=== PATIENT | female | born 1955 | race Two or more races ===

== ENCOUNTER 2024-08-13 13:18 | Inpatient (IN) | payer OTHER, MEDICAID ==
[~2024-08-13] VITALS: Ht 167.6 cm; Wt 45.0 kg
--- NOTE | 2024-08-13 14:29 | ECG ---
[facility] Test Date: 2024-08-13 Test Time: 13:29:38 Pat Name: FAVIO CAIN Department: er Room: Gender: F Manager Of Selection And Assessment: lisa : 1955 Requested By: TARA MORA Order Number: [id number] Reading MD: Measurements Intervals [place] Rate: 88 P: 83 RI: 141 QRS: 81 QRSD: 94 T: 26 QT: 381 QTc: 461 Interpretive Statements Sinus rhythm Borderline right axis deviation Probable LVH with secondary repol abnrm Please click the below link to view image of tracing.
--- NOTE | 2024-08-13 14:35 | ED.PDOC ---
SOB-HPI HPI Comments 69-year-old female with PMHx Lung Cancer, DM, HTN brought in by EMS presents with a chief complaint of SOB x 2 weeks. Patient reports that she stays in a board and care facility, and "wanted to get out" due to feeling like she is not being cared for because "they don't even know my medicine that I take". Patient was on Hospice, but reports that she does not want to continue on Hospice. Patient reports that she wants to "go somewhere where they actually know what medications I am on and where they take care of you." No other symptoms or modifying factors present at this time. 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 Hx Family History Family History: Reviewed,noncontributory to illness Social History Smoker: Quit Greater Than 1 Year Alcohol: Denies ETOH Use Drugs: Denies Drug Use Lives In: [facility] Constitutional: denies: chills, diaphoresis, fatigue, fever, malaise, sweats, weakness, others EENTM: denies: blurred vision, double vision, ear bleeding, ear discharge, ear drainage, ear pain, ear ringing, eye pain, eye redness, hearing loss, mouth pain, mouth swelling, nasal discharge, nose bleeding, nose congestion, nose pain, photophobia, tearing, throat pain, throat swelling, voice changes, others Respiratory: reports: shortness of breath; denies: cough, hemoptysis, orthopnea, SOB at rest, SOB with excertion, stridor, wheezing, others Cardiovascular: denies: chest pain, dizzy spells, diaphoresis, Dyspnea on exertion, edema, irregular heart beat, left arm pain, lightheadedness, palpitations, PND, syncope, others Gastrointestinal: denies: abdomen distended, abdominal pain, blood streaked bowels, constipated, diarrhea, dysphagia, difficulty swallowing, hematemesis, melena, nausea, poor appetite, poor fluid intake, rectal bleeding, rectal pain, vomiting, others Genitourinary: denies: abnormal vagina bleeding, burning, dyspareunia, dysuria, flank pain, frequency, hematuria, incontinence, pain, , vagina disc harge, urgency, others Neurological: denies: dizziness, fainting, headache, left sided numbness, left sided weakness, numbness, paresthesia, pre-existing deficit, right sided numbness, right sided weakness, seizure, speech problems, tingling, tremors, weakness, others Musculoskeletal: denies: back pain, gout, joint pain, joint swelling, muscle pain, muscle stiffness, neck pain, others Integumetry: denies: bruises, change in color, change in hair/nails, dryness, laceration, lesions, lumps, rash, wounds, others Allergic/Immunocompromised: denies: Difficulty Healing, Frequent Infections, Hives, Itching, others Hematologic/Lymphatic: denies: anemia, blood clots, easy bleeding, easy bruising, swollen glands, others Endocrine: denies: excessive hunger, excessive sweating, excessive thirst, excessive urination, flushing, intolerance to cold, intolerance to heat, unexplained weight gain, unexplained weight loss, others Psychiatric: denies: anxiety, bipolar disorder, depression, hopeless, panic disorder, schizophrenia, sleepless, suicidal, others All Other Systems: Reviewed and Negative Physical Exam General Appearance: Mild Distress, Normal HEENT: Normal ENT Inspection, Pharynx Normal, TMs Normal Neck: Full Range of Motion, Non-Tender, Normal, Normal Inspection Respiratory: Chest Non-Tender, Lungs Clear, No Accessory Muscle Use, No Respiratory Distress, Normal Breath Sounds Cardiovascular: No Edema, No JVD, No Murmur, No Gallop, Normal Peripheral Pulses, Regular Rate/Rhythm Breast Exam: Deferred Gastrointestinal: No Organomegaly, Non Tender, No Pulsatile Mass, Normal Bowel Sounds, Soft Genitalia: Deferred Pelvic: Deferred Rectal: Deferred Extremities: No calf tenderness, Normal capillary refill, Normal inspection, Normal range of motion, Non-tender, No pedal edema Musculoskeletal : Apperance: Normal Neurologic: Alert, tripe finisher II-XII nml as Tested, No Motor Deficits, Normal Affect, Normal Mood, No Sensory Deficits Cerebellar Function: Normal Reflexes: Normal Skin: Dry, Normal Color, Warm Lymphatic: No Adenopathy EKG EKG : Pulse Rate (adult): 90 [place]: Normal Cardiac Rhythm: NSR Block: None Hypertrophy: LVH ST: Normal Was a procedure done? Was a procedure done?: No Differential Dx Differential Diagnosis: Asthma, Bronchitis, CHF, COPD, Hypertension, Pneumonia, Pneumothorax, Pulmonary Embolism, Respiratory Distress X-Ray, Labs, Meds, VS Vital Signs Date Time Temp Pulse Resp B/P (MAP) Pulse Ox O2 Delivery O2 Flow Rate FiO2 08/13/24 16:51 98.0 96 16 132/82 (99) 96 98.0 08/13/24 14:40 14 92 Room Air* 0 21 08/13/24 14:35 90 08/13/24 13:29 88 08/13/24 13:20 Room Air* 0 21 08/13/24 13:20 Room Air* 0 21 08/13/24 13:20 98.1 90 22 135/79 (97) 94 98.1 08/13/24 13:20 98.1 90 22 135/79 (97) 94 Lab Test 08/13/24 15:12 08/13/24 14:16 Range/Units Troponin I High Sensitivity 3 L 3 L </=34 ng/L White Blood Count 5.7 4.4-10.8 10^3/uL Red Blood Count 3.79 L 4.0-5.20 10^6/uL Hemoglobin 12.5 12.2-16.2 g/dL Hematocrit 38.2 36.0-46.0 % Mean Corpuscular Volume 100.9 H 80.0-100.0 fL Mean Corpuscular Hemoglobin 33.1 H 28.0-32.0 pg Mean Corpuscular Hemoglobin Concent 32.8 32.0-36.0 g/dL Red Cell Distribution Width 18.4 H 11.8-14.3 % Platelet Count 247 140-450 10^3/uL Mean Platelet Volume 8.9 6.9-10.8 fL Neutrophils (%) (Auto) 75.9 37.0-80.0 % Lymphocytes (%) (Auto) 14.4 10.0-50.0 % Monocytes (%) (Auto) 8.0 0.0-12.0 % Eosinophils (%) (Auto) 0.5 0.0-7.0 % Basophils (%) (Auto) 1.2 0.0-2.0 % Neutrophils # (Auto) 4.3 1.6-8.6 10 ^3/uL Lymphocytes # (Auto) 0.8 0.4-5.4 10 ^3/uL Monocytes # (Auto) 0.5 0-1.3 10 ^3/uL Eosinophils # (Auto) 0 0-0.8 10 ^3/uL Basophils # (Auto) 0.1 0-0.2 10 ^3/uL Nucleated Red Blood Cells 0.1 % Sodium Level 133 L 136-145 mmol/L Potassium Level 4.0 3.5-5.1 mmol/L Chloride Level 100 98-107 mmol/L Carbon Dioxide Level 25 20-31 mmol/L Anion Gap 8 5-15 Blood Urea Nitrogen 11 9-23 mg/dL Creatinine 0.68 0.550-1.02 mg/dL Glomerular Filtration Rate Calc 95 >90 mL/min BUN/Creatinine Ratio 16.2 10.0-20.0 Serum Glucose 90 74-106 mg/dL Calcium Level 10.1 8.7-10.4 mg/dL Total Bilirubin 0.2 0.2-1.0 mg/dL Aspartate Amino Transferase (AST) 22 13-40 U/L Alanine Aminotransferase (ALT) 15 7-40 U/L Alkaline Phosphatase 77 46-116 U/L Total Protein 7.3 5.7-8.2 g/dL Albumin 4.8 3.2-4.8 g/dL Current Medications Medications (Trade) Dose Ordered Sig/Jackie Route Start Time Stop Time Status Last Admin Albuterol (Ventolin Medneb) 2.5 mg STAT ONCE HHN 08/13/24 14:00 08/13/24 14:02 DC 08/13/24 14:40 Ipratropium [place] (Atrovent Medneb) 0.5 mg ONCE ONCE NEB 08/13/24 14:00 08/13/24 14:02 DC 08/13/24 14:40 69-year-old female presents here with shortness of breath that has been progressively getting worse the last 2 weeks. She has a known history of lung carcinoma. She is currently at a boarding [facility] the became hospice. She states since she went on hospice care she is not getting appropriate treatment. She is requesting transferred to another living facility. At this time considered possible COPD exacerbation as well as pulmonary embolism given her history of carcinoma. I have given her breathing treatments in the emergency room. Clinically she initially felt better however is requiring additional breathing treatments. Blood work has been done with a normal CBC and CMP. At this time I have given patient additional breathing treatments she has continues to feel short of breath. Additionally patient refuses to go back to the facility she came from and will require placement. Hospitalist team has been contacted. Time of 1ST Reevaluation: 14:00 Reevaluation 1ST: Unchanged Patient Education/Counseling: Diagnosis, Treatment, Prognosis Family Education/Counseling: Diagnosis, Treatment, Prognosis Departure 1 Departure Time of Disposition: 15:30 Impression: Primary Impression: COPD exacerbation Disposition: ADMITTED INPATIENT Admit to: Tele Condition: Stable Critical Care Note Critical Care Time?: No Stability Stability form required: No Heart Score Heart Score: Heart Score Response (Comments) Value History Slightly Suspicious 0 EKG Normal 0 Age >65 2 Risk Factors 1 or 2 risk factors 1 Troponin Normal limit 0 Total 3 I personally scribed for TARA MORA MD ([email or web address]) on 08/13/24 at 14:35. Electronically submitted by Matthew Alaniz ([email or web address]). TARA MORA MD Aug 13, 2024 14:35
[2024-08-13 14:40] LABS: Basophils # (auto) 0.1 10 ^3/uL (0-0.2); Basophils % (auto) 1.2 % (0.0-2.0); Eosinophils # (auto) 0 10 ^3/uL (0-0.8); Eosinophils % (auto) 0.5 % (0.0-7.0); Hematocrit 38.2 % (36.0-46.0); Hemoglobin 12.5 g/dL (12.2-16.2); Lymphocytes # (auto) 0.8 10 ^3/uL (0.4-5.4); Lymphocytes % (auto) 14.4 % (10.0-50.0); Mean Corpuscular Hemoglobin 33.1 pg (28.0-32.0); Mean Corpuscular Hgb Conc. 32.8 g/dL (32.0-36.0); Mean Corpuscular Volume 100.9 fL (80.0-100.0); Monocytes # (auto) 0.5 10 ^3/uL (0-1.3); Neutrophils # (auto) 4.3 10 ^3/uL (1.6-8.6); Neutrophils % (auto) 75.9 % (37.0-80.0); Nucleated Red Blood Cells % 0.1 %; Platelet Count (auto) 247 10^3/uL (140-450); Red Blood Cells 3.79 10^6/uL (4.0-5.20); Red Cell Distribution Width 18.4 % (11.8-14.3); White Blood Cell 5.7 10^3/uL (4.4-10.8)
[2024-08-13] MEDS: ALBUTEROL SULF 2.5 MG/0.5ML(0.5%) NEB SOLN HHN ONE (14:40)
[2024-08-13] MEDS: IPRATROPIUM BROM 0.5 MG/2.5ML INH SOL NEB ONE (14:40)
[2024-08-13 14:55] LABS: Alanine Aminotransferase 15 U/L (7-40); Alkaline Phosphatase 77 U/L (46-116); Anion Gap 8 (5-15); Aspartate Aminotransferase 22 U/L (13-40); BUN/Creatinine Ratio 16.2 (10.0-20.0); Blood Urea Nitrogen 11 mg/dL (9-23); Calcium 10.1 mg/dL (8.7-10.4); Carbon Dioxide 25 mmol/L (20-31); Chloride 100 mmol/L (98-107); Glucose 90 mg/dL (74-106); Total Protein 7.3 g/dL (5.7-8.2)
[2024-08-13 15:09] LABS: Albumin 4.8 g/dL (3.2-4.8); Bilirubin, Total 0.2 mg/dL (0.2-1.0); Sodium 133 mmol/L (136-145)
[2024-08-13] MEDS: IOHEXOL 350 MG/ML 100ML IJ ONE (16:17)
--- NOTE | 2024-08-13 16:48 | DVH ---
EXAM: XR Chest, 2 Views CLINICAL INDICATION: ro pna TECHNIQUE: Frontal and lateral views of the chest. COMPARISON: None FINDINGS: LUNGS AND PLEURAL SPACES: Hyperlucent lungs. Flattening of the diaphragm. No consolidation. No pne umothorax. HEART: Unremarkable. No cardiomegaly. MEDIASTINUM: Unremarkable. Normal mediastinal contour. BONES/JOINTS: Unremarkable. No acute fracture. OTHER FINDINGS: . . IMPRESSION: Suggestion of COPD. No focal consolidation.
--- NOTE | 2024-08-13 17:02 | DVH ---
Procedure: CT CT ANGIO CHEST CONTRAST Reason for study/Clinical History: ro pe Comparison Study: None available at time of dictation. Exam Date: 08/13/2024 04:16 PM Radiation Dose Information: CT Dose: CTDI volume is 8.88 mGy. Dose-length product is 166.86 mGy*cm Contrast: Type of contrast: Omnipaque 350 Contrast inject: 76 mL Contrast wasted:0 TECHNIQUE: After the uneventful administration of intravenous contrast intravenously, CT imaging was performed through the chest. Coronal and sagittal reformations were performed by the technologist. Sagittal and coronal MIP reconstructions of the chest CT were obtained and submitted for interpretati on. FINDINGS: Lower Neck: Visualized portions of the thyroid gland are unremarkable. Aorta and Vasculature: Normal caliber of thoracic aorta. Lymph Nodes: No enlarged intrathoracic lymph nodes. Mediastinum: Heart size is normal. There is no pericardial effusion. The esophagus is unremarkable. Lungs: Multiple small spiculated nodules left lung field noncalcified. 8-9 mm nodule left upper lung field (series 3 image 32) ; 8-9 mm ( series 3 image 45 ); 5-6 mm nodule lingula ( series 3, image 69) A 7-8 mm spiculated noncalcified nodule in the right upper lung field (series 3 image 26) Musculoskeletal: No acute osseous abnormality. Upper abdomen: Limited portions of the upper abdomen are unremarkable. IMPRESSION: 1. No pulmonary embolus no pulmonary hypertension 2. 3 pulmonary nodules left lung field. 1 pulmonary nodule right lung field. Correlate with patient's risk factors and recommend follow-up study in 6-[address] scans at this medical facility are performed using dose modulation techniques as appropriate to a performed exam including the following: Automated exposure control was utilized; adjustment of t he MA and/or KV according to patient size; and use of iterative reconstruction technique.
[2024-08-13] MEDS: DexAMETHasone SOD PHOS 10MG/1ML VIAL INJ IV ONE (18:17)
[2024-08-13] MEDS: ALBUTEROL SULF 2.5 MG/0.5ML(0.5%) NEB SOLN NEB ONE (18:20)
[2024-08-13] MEDS ORDERED: ONDANSETRON HCL 4 MG/2 ML VIAL IV PRN (22:45)
[2024-08-13] MEDS ORDERED: NITROGLYCERIN 0.4 MG SL TAB SL PRN (22:45)
[2024-08-13] MEDS ORDERED: DOCUSATE SOD 100 MG CAP PO PRN (22:45)
[2024-08-13] MEDS ORDERED: DEXTROSE (50%) 50ML SYRG IV PRN (22:45)
[2024-08-13] MEDS ORDERED: ACETAMINOPHEN 325 MG TAB PO PRN (22:45)
--- NOTE | 2024-08-13 22:54 | DVHHP2 ---
History of Present Illness Reason for Visit: COPD with acute exacerbation History of Present Illness The patient is a 69-year-old female with past medical history of cancer, COPD, DM, hypertension, and thyroid disease who presented to [facility] ED with complaint of shortness of breaths for approximately 2 weeks duration. Patient was on hospice care, reports symptoms progressively get worse with shortness a breath on exertion, SOB at rest, increased work of breathing, getting worse that prompted this visit. Patient was seen and evaluated in the ED, laboratory data shows WBC 5.7, platelets 247, sodium 133, potassium 4.0, BUN 11, creatinine 0.68, GFR 95, glucose 90, troponin 3, blood pressure 152/70, heart rate 85, temperature 98.7 F, O2 saturation 92% on oxygen. Patient was given breathing treatment, please see medication orders section in the computer. On my assessment, patient denied chest pain, no headache, no dizziness, no abdominal pain, no diarrhea, no nausea, no vomiting, no fever, no chills. Patient was admitted for further evaluation and medical management. Past Medical History Cancer, DM, HTN, thyroid, COPD Past Surgical History Denies all surgeries Family History Reviewed, noncontributory to the management of this case. Past Social History The patient lives in correction, quit smoking greater than 1 year, denies alcohol or illicit drugs abuse. Review of Systems Constitutional: Yes: Weakness; No: Fever, Chills, Sweats, Malaise, Other Eyes: No: Pain, Vision change, Conjunctivae inflammation, Eyelid inflammation, Other, Redness ENT: No: Ear pain, Ear discharge, Nose pain, Nose discharge, Nose congestion, Mouth pain, Mouth swelling, Throat pain, Throat swelling, Other Respiratory: Shortness of breath, SOB with excertion, Other (SOB at rest); No: Cough, Dry, Wheezing, Hemoptysis, Pleuritic Pain, Sputum, Wheezing Cardiovascular: No: Chest Pain, Palpitations, Orthopnea, Paroxysmal Noc. Dyspnea, Edema, Lt Headedness, Other Gastrointestinal: No: Nausea, Vomiting, Abdominal Pain, Diarrhea, Constipation, Melena, Hematochezia, Other Genitourinary: No Dysuria, No Frequency, No Incontinence, No Hematuria, No Retention, No Other Musculoskeletal: No: other, neck pain, shoulder pain, arm pain, back pain, hand pain, leg pain, foot pain Skin: No: Rash, Lesions, Jaundice, Bruising, Other Neurological: No: Weakness, Numbness, Incoordination, Change in speech, Confusion, Seizures, Other Allergies: Uncoded Allergies: Seizure Medication (Allergy, Unknown, 08/13/24) Exam Vital Signs Vital Signs Date Time Temp Pulse Resp B/P (MAP) Pulse Ox O2 Delivery O2 Flow Rate FiO2 08/13/24 21:00 Room Air* 0 21 08/13/24 20:58 98.7 85 16 152/70 (97) 92 98.7 General Appearance: Alert, Oriented X3, Cooperative, No acute distress HEENT: Atraumatic, PERRLA, EOMI, Mucous membr. moist/pink Respiratory: Normal air movement, Other (Diminished breath sounds) Cardiovascular: Regular rate, Normal S1, Normal S2, No murmurs Abdominal: Normal bowel sounds, Soft, No tenderness, No hepatospenomegaly, No masses Extremities: No clubbing, No cyanosis, No edema, Normal pulses, No tenderness/swelling Skin: No rashes, No breakdown, No significant lesion Neuro: Normal speech, Normal tone, Sensation intact, Cranial nerves 3-12 NL, Reflexes 2+, Other (Generalized weakness) Psych/Mental Status: Mental status NL, Mood NL Labs/Xrays Labs Test 08/13/24 15:12 08/13/24 14:16 Range/Units Troponin I High Sensitivity 3 L </=34 ng/L White Blood Count 5.7 4.4-10.8 10^3/uL Red Blood Count 3.79 L 4.0-5.20 10^6/uL Hemoglobin 12.5 12.2-16.2 g/dL Hematocrit 38.2 36.0-46.0 % Mean Corpuscular Volume 100.9 H 80.0-100.0 fL Mean Corpuscular Hemoglobin 33.1 H 28.0-32.0 pg Mean Corpuscular Hemoglobin Concent 32.8 32.0-36.0 g/dL Red Cell Distribution Width 18.4 H 11.8-14.3 % Platelet Count 247 140-450 10^3/uL Mean Platelet Volume 8.9 6.9-10.8 fL Neutrophils (%) (Auto) 75.9 37.0-80.0 % Lymphocytes (%) (Auto) 14.4 10.0-50.0 % Monocytes (%) (Auto) 8.0 0.0-12.0 % Eosinophils (%) (Auto) 0.5 0.0-7.0 % Basophils (%) (Auto) 1.2 0.0-2.0 % Neutrophils # (Auto) 4.3 1.6-8.6 10 ^3/uL Lymphocytes # (Auto) 0.8 0.4-5.4 10 ^3/uL Monocytes # (Auto) 0.5 0-1.3 10 ^3/uL Eosinophils # (Auto) 0 0-0.8 10 ^3/uL Basophils # (Auto) 0.1 0-0.2 10 ^3/uL Nucleated Red Blood Cells 0.1 % Sodium Level 133 L 136-145 mmol/L Potassium Level 4.0 3.5-5.1 mmol/L Chloride Level 100 98-107 mmol/L Carbon Dioxide Level 25 20-31 mmol/L Anion Gap 8 5-15 Blood Urea Nitrogen 11 9-23 mg/dL Creatinine 0.68 0.550-1.02 mg/dL Glomerular Filtration Rate Calc 95 >90 mL/min BUN/Creatinine Ratio 16.2 10.0-20.0 Serum Glucose 90 74-106 mg/dL Calcium Level 10.1 8.7-10.4 mg/dL Total Bilirubin 0.2 0.2-1.0 mg/dL Aspartate Amino Transferase (AST) 22 13-40 U/L Alanine Aminotransferase (ALT) 15 7-40 U/L Alkaline Phosphatase 77 46-116 U/L Total Protein 7.3 5.7-8.2 g/dL Albumin 4.8 3.2-4.8 g/dL PATIENT: FAVIO CAIN ACCT: [id number] UNIT: [id number] : 1955 LOC: ER ROOM / BED: / AGE / SEX: 69 / F ADM STATUS: REG ER SERVICE [id number] ORDERING PHYSICIAN: TARA MORA MD PROCEDURE(s): CTACH - CT ANGIO CHEST CONTRAST REASON: ro pe ORDER NUMBER(s): [id number], ACCESSION NUMBER(s): [id number] Procedure: CT CT ANGIO CHEST CONTRAST Reason for study/Clinical History: ro pe Comparison Study: None available at time of dictation. Exam Date: 08/13/2024 04:16 PM Radiation Dose Information: CT Dose: CTDI volume is 8.88 mGy. Dose-length product is 166.86 mGy*cm Contrast: Type of contrast: Omnipaque 350 Contrast inject: 76 mL Contrast wasted:0 TECHNIQUE: After the uneventful administration of intravenous contrast intravenously, CT imaging was performed through the chest. Coronal and sagittal reformations were performed by the technologist. Sagittal and coronal MIP reconstructions of the chest CT were obtained and submitted for interpretation. FINDINGS: Lower Neck: Visualized portions of the thyroid gland are unremarkable. Aorta and Vasculature: Normal caliber of thoracic aorta. Lymph Nodes: No enlarged intrathoracic lymph nodes. Mediastinum: Heart size is normal. There is no pericardial effusion. The esophagus is unremarkable. Lungs: Multiple small spiculated nodules left lung field noncalcified. 8-9 mm nodule left upper lung field (series 3 image 32); 8-9 mm ( series 3 image 45 ); 5-6 mm nodule lingula ( series 3, image 69) A 7-8 mm spiculated noncalcified nodule in the right upper lung field (series 3 image 26) Musculoskeletal: No acute osseous abnormality. Upper abdomen: Limited portions of the upper abdomen are unremarkable. IMPRESSION: 1. No pulmonary embolus no pulmonary hypertension 2. 3 pulmonary nodules left lung field. 1 pulmonary nodule right lung field. Correlate with patient's risk factors and recommend follow-up study in 6-12 months ORDERING PHYSICIAN: TARA MORA MD PROCEDURE(s): CXR2 - CHEST TWO VIEWS ROUTINE REASON: ro pna ORDER NUMBER(s): [id number], ACCESSION NUMBER(s): [id number] EXAM: XR Chest, 2 Views CLINICAL INDICATION: ro pna TECHNIQUE: Frontal and lateral views of the chest. COMPARISON: None FINDINGS: LUNGS AND PLEURAL SPACES: Hyperlucent lungs. Flattening of the diaphragm. No consolidation. No pneumothorax. HEART: Unremarkable. No cardiomegaly. MEDIASTINUM: Unremarkable. Normal mediastinal contour. BONES/JOINTS: Unremarkable. No acute fracture. OTHER FINDINGS: . . IMPRESSION: Suggestion of COPD. No focal consolidation. Assessment/Plan Assessment/Plan COPD with acute exacerbation Hyponatremia Generalized weakness Plan 1. Admit to telemetry unit 2. Breathing treatment 3. Pain control management 4. Management of fluids and electrolytes 5. Consultation for pulmonology 6. Diagnostic tests chest x-ray 7. DVT prophylaxis-on aspirin 8. Repeat labs CBC, CMP in a.m. 9. Continue with current medical management 10. Treatment plan discussed with patient and RN. Patient verbalized understanding. Plan discussed with: Patient, Other (RN) My Orders Orders - LIBBY JAVIER DNP Procedure Category Date Status Time Albuterol Medneb PHA 08/13/24 Verified (Ventolin Medneb) 22:45 Ipratropium Medneb PHA 08/13/24 Verified (Atrovent Medneb) 22:45 Methylprednisolone PHA 08/14/24 Verified Sod Succ (Solu Medrol 10:00 Famotidine Injection PHA 08/14/24 Verified (Pepcid Injection) 10:00 Hydralazine Injection PHA 08/13/24 Verified (Apresoline Inject 22:45 *Consult CONS 08/13/24 Verified / 22:45 Problem List: (1) COPD with acute exacerbation (2) Hyponatremia (3) Generalized weakness Date of Service: Aug 13, 2024 Billing Provider: LIBBY JAVIER DNP Common Visit Codes: [id number] INP/OBS CARE (HIGH) LIBBY JAVIER DNP Aug 13, 2024 22:54
[2024-08-13 23:48] VITALS: BP 152/70; PULSE 89; RESP 18; TEMP 98; O2SAT 96
[2024-08-14] VITALS (13 sets, daily range): BP systolic 157; BP diastolic 72; PULSE 73–97; RESP 18–22; TEMP 98.3; O2SAT 90–100
[2024-08-14] MEDS: SODIUM CHLORIDE 0.9% 1,000 ML IV SCH (00:55)
[2024-08-14] MEDS: LEVOTHYROXINE SODIUM 25 MCG TAB PO SCH (06:00)
[2024-08-14] MEDS: InsuLIN REG 1unit/0.01ml Soln (100units/ml) SC SCH (06:24)
[2024-08-14] MEDS: ACCU-CHEK COMFORT CURVE STRIP VI SCH (06:25)
[2024-08-14] MEDS: ALBUTEROL SULF 2.5 MG/0.5ML(0.5%) NEB SOLN NEB PRN (06:28)
[2024-08-14 06:57] LABS: Basophils # (auto) 0 10 ^3/uL (0-0.2); Eosinophils # (auto) 0 10 ^3/uL (0-0.8); Eosinophils % (auto) 0.1 % (0.0-7.0); Lymphocytes # (auto) 0.8 10 ^3/uL (0.4-5.4); Mean Corpuscular Volume 102.2 fL (80.0-100.0); Monocytes # (auto) 0.4 10 ^3/uL (0-1.3); Neutrophils # (auto) 3.5 10 ^3/uL (1.6-8.6); Red Cell Distribution Width 17.8 % (11.8-14.3); White Blood Cell 4.7 10^3/uL (4.4-10.8)
[2024-08-14 07:01] LABS: Basophils % (auto) 0.5 % (0.0-2.0); Hematocrit 37.9 % (36.0-46.0); Hemoglobin 12.2 g/dL (12.2-16.2); Lymphocytes % (auto) 17.5 % (10.0-50.0); Mean Corpuscular Hemoglobin 32.9 pg (28.0-32.0); Mean Corpuscular Hgb Conc. 32.2 g/dL (32.0-36.0); Monocytes % (auto) 8.8 % (0.0-12.0); Neutrophils % (auto) 73.1 % (37.0-80.0); Nucleated Red Blood Cells % 0.1 %; Platelet Count (auto) 238 10^3/uL (140-450)
[2024-08-14 07:21] LABS: Alanine Aminotransferase 11 U/L (7-40); Albumin 4.6 g/dL (3.2-4.8); Alkaline Phosphatase 70 U/L (46-116); Anion Gap 8 (5-15); Aspartate Aminotransferase 17 U/L (13-40); BUN/Creatinine Ratio 11.1 (10.0-20.0); Calcium 9.9 mg/dL (8.7-10.4); Carbon Dioxide 23 mmol/L (20-31); Chloride 100 mmol/L (98-107); Glucose 102 mg/dL (74-106); Potassium 4.2 mmol/L (3.5-5.1); Total Protein 7.2 g/dL (5.7-8.2)
[2024-08-14 07:24] LABS: Bilirubin, Total 0.3 mg/dL (0.2-1.0); Blood Urea Nitrogen 8 mg/dL (9-23); Sodium 131 mmol/L (136-145)
[2024-08-14] MEDS: IPRATROPIUM BROM 0.5 MG/2.5ML INH SOL NEB PRN (08:11)
[2024-08-14] MEDS: HYDROcodone-ACET 5/325MG TAB PO PRN (08:51)
[2024-08-14] MEDS: FAMOTIDINE (10MG/ML) 2ML VL IV SCH (10:00)
[2024-08-14] MEDS: methylPREDNISolone SOD SUCC 40 MG/ML VL IV SCH (10:00)
--- NOTE | 2024-08-14 14:21 | DVHPN2 ---
Reviewed: Care Plan, H&P, Labs, Medications, Previous Orders, Radiology Changes from previous H/P or p: No Changes Eyes: No Pain, No Vision change, No Conjunctivae inflammation, No Eyelid inflammation, No Other, No Redness ENT: No Ear pain, No Ear discharge, No Nose pain, No Nose discharge, No Nose congestion, No Mouth pain, No Mouth swelling, No Throat pain, No Throat swelling, No Other Cardiovascular: No Chest Pain, No Palpitations, No Orthopnea, No Paroxysmal Noc. Dyspnea, No Edema, No Lt Headedness, No Other Respiratory: No Cough, No Dry; Shortness of breath, SOB with excertion; No Wheezing, No Hemoptysis, No Pleuritic Pain, No Sputum; Other (SOB at rest) Gastrointestinal: No Nausea, No Vomiting, No Abdominal Pain, No Diarrhea, No Constipation, No Melena, No Hematochezia, No Other Genitourinary: No Dysuria, No Frequency, No Incontinence, No Hematuria, No Retention, No Other Musculoskeletal: No other, No neck pain, No shoulder pain, No arm pain, No back pain, No hand pain, No leg pain, No foot pain Skin: No Rash, No Lesions, No Jaundice, No Bruising, No Other Objective Vitals Vital Signs Date Time Temp Pulse Resp B/P (MAP) Pulse Ox O2 Delivery O2 Flow Rate FiO2 08/14/24 13:26 98.0 85 15 152/85 (107) 92 98.0 08/14/24 08:12 Nasal Cannula* 2 28 Intake/Output Intake and Output 08/14/24 07:00 Intake Total 360 ml Balance 360 ml Intake IV Total 360 ml Medications Current Medications Medications Dose Ordered Sig/Jackie Route Start Time Stop Time Status Last Admin Dose Admin Albuterol 2.5 mg Q4HPRN PRN NEB 08/13/24 22:45 08/14/24 06:28 2.5 MG Ipratropium [place] 0.5 mg Q4HPRN PRN NEB 08/13/24 22:45 08/14/24 08:11 0.5 MG Methylprednisolone Sodium Succinate 40 mg BID IV 08/14/24 10:00 Famotidine 20 mg DAILY IV 08/14/24 10:00 Hydralazine HCl 10 mg Q6HP PRN IV 08/13/24 22:45 Diagnostic Test (Pha) 1 strip ACHS 08/14/24 07:00 08/14/24 11:38 1 STRIP Insulin Human Regular ACHS SC 08/14/24 07:00 Dextrose 50 ml UD PRN IV 08/13/24 22:45 Sodium Chloride 1,000 ml @ 60 mls/hr [id number] IV 08/13/24 22:45 08/14/24 00:55 60 MLS/HR Acetaminophen/ Hydrocodone Bitart 1 tab Q4HP PRN PO 08/13/24 22:45 08/14/24 08:51 1 TAB Ondansetron HCl 4 mg Q4HP PRN IV 08/13/24 22:45 Docusate Sodium 100 mg BIDPRN PRN PO 08/13/24 22:45 Acetaminophen 650 mg Q6HP PRN PO 08/13/24 22:45 Nitroglycerin 0.4 mg Q5MINP PRN SL 08/13/24 22:45 Morphine Sulfate 2 mg Q30M PRN IV 08/13/24 22:45 Levothyroxine Sodium 75 mcg QAM@0600 PO 08/14/24 06:00 08/14/24 06:00 75 MCG Laboratory Results Laboratory Tests 08/14/24 06:25 Chemistry Test 08/14/24 06:25 Albumin 4.6 g/dL (3.2-4.8) Calcium Level 9.9 mg/dL (8.7-10.4) Total Protein 7.2 g/dL (5.7-8.2) LFT Test 08/14/24 06:25 Alanine Aminotransferase (ALT) 11 U/L (7-40) Alkaline Phosphatase 70 U/L (46-116) Aspartate Amino Transferase (AST) 17 U/L (13-40) Total Bilirubin 0.3 mg/dL (0.2-1.0) HgA1c, TSH Test 08/13/24 15:12 Thyroid Stimulating Hormone (TSH) 75.64 uIU/mL (0.55-4.78) H Labs and/or images reviewed: Labs reviewed by me, Image(s) reviewed by me Assessment/Plan Assessment/Plan Acute on chronic hypoxic respiratory failure: Oxygen by nasal cannula Acute COPD exacerbation: Albuterol Atrovent Solu-Medrol Hypertension Hypothyroidism Uncontrolled diabetes: History of cancer Hypothyroidism: Synthroid Time spent 65 minutes Patient is full code Advanced care planning time 20 minutes Patient not stable for transfer to [facility] discussed with: Patient Date of Service: Aug 14, 2024 Billing Provider: ASHLIE BAKER MD Common Visit Codes: [id number] CARE 30-74 MIN ASHLIE BAKER MD Aug 14, 2024 14:21
[2024-08-14] MEDS: MORPHINE SULFATE INJ 2 MG/ml SYRG IV PRN (15:17)
[2024-08-14] MEDS: ALBUTEROL SULF 2.5 MG/0.5ML(0.5%) NEB SOLN NEB SCH (18:00)
[2024-08-14] MEDS: IPRATROPIUM BROM 0.5 MG/2.5ML INH SOL NEB SCH (18:00)
--- NOTE | 2024-08-14 18:47 | DVHINCON2 ---
Date of service: Aug 13, 2024 Referring Physician TATYANA Sanchez Reason for Consultation Acute exacerbation of COPD History of Present Illness 69-year-old woman history of lung cancer, diabetes mellitus type 2, hypertension who presented with shortness of breath. She has been experiencing these sympto ms for the last two weeks. Who currently fever to board and care facility. Patient was on hospice. [facility] continue to be on hemoptysis. He was weaving. He was having a lot of cough and phlegm production. Pulmonary consultation is called due to acute exacerbation of COPD. Review of systems: 14 point review of systems is negative unless otherwise noted above. Past medical history: Cancer, diabetes mellitus type 2, hypertension Past surgical history: None mentioned in prior surgeries. Medications: Reviewed Allergies: Seizure medications. Family history: No family history of premature CAD. No family history of lung disease Social history: Ex-smoker. Quit more than one years ago. No alcohol or illicit drug use. Lives at [facility]. Allergies: Uncoded Allergies: Seizure Medication (Allergy, Unknown, 08/13/24) Current Medications Current Medications Medications (Trade) Dose Ordered Sig/Jackie Route PRN Reason Start Time Stop Time Status Last Admin Albuterol (Ventolin Medneb) 2.5 mg Q4HPRN PRN NEB SHORTNESS OF BREATH 08/13/24 22:45 08/14/24 15:19 Ipratropium [place] (Atrovent Medneb) 0.5 mg Q4HPRN PRN NEB SHORTNESS OF BREATH 08/13/24 22:45 08/14/24 15:19 Methylprednisolone Sodium Succinate (Solu Medrol) 40 mg BID IV 08/14/24 10:00 Famotidine (Pepcid Injection) 20 mg DAILY IV 08/14/24 10:00 Hydralazine HCl (Apresoline Injection) 10 mg Q6HP PRN IV SBP>150 08/13/24 22:45 Diagnostic Test (Pha) (Accu-Chek Comfort Curve T) 1 strip ACHS 08/14/24 07:00 08/14/24 11:38 Insulin Human Regular (InsuLIN R) ACHS SC 08/14/24 07:00 Dextrose 50 ml UD PRN IV Blood Sugar LESS THAN 60 08/13/24 22:45 Sodium Chloride 1,000 ml @ 60 mls/hr [id number] IV 08/13/24 22:45 08/14/24 15:40 Acetaminophen/ Hydrocodone Bitart ([place] 5/325MG Tab) 1 tab Q4HP PRN PO MODERATE PAIN (4-6 PAIN SCALE) 08/13/24 22:45 08/14/24 08:51 Ondansetron HCl (Zofran) 4 mg Q4HP PRN IV NAUSEA / VOMITING 08/13/24 22:45 Docusate Sodium (Colace Capsule) 100 mg BIDPRN PRN PO FOR CONSTIPATION 08/13/24 22:45 Acetaminophen (Tylenol Tablet) 650 mg Q6HP PRN PO PAIN SCALE 1-3 OR TEMP>100.4 08/13/24 22:45 Nitroglycerin (Ntrostat Sublingual) 0.4 mg Q5MINP PRN SL FOR CHEST PAIN 08/13/24 22:45 Morphine Sulfate 2 mg Q30M PRN IV FOR CHEST PAIN 08/13/24 22:45 08/14/24 15:17 Levothyroxine Sodium (Synthroid Tablet) 75 mcg QAM@0600 PO 08/14/24 06:00 08/14/24 06:00 Albuterol (Ventolin Medneb) 2.5 mg Q4HR NEB 08/14/24 18:00 Ipratropium [place] (Atrovent Medneb) 0.5 mg Q4HR NEB 08/14/24 18:00 Vital Signs Vital Signs Date Time Temp Pulse Resp B/P (MAP) Pulse Ox O2 Delivery O2 Flow Rate FiO2 08/14/24 16:45 81 15 154/73 (100) 99 08/14/24 15:19 Nasal Cannula 2.0 08/14/24 15:19 28 08/14/24 14:45 98.3 98.3 Physical Exam Gen.: Patient lying in bed in no apparent distress. On supplemental oxygen. Head: Normocephalic, atraumatic Eyes: EOMI/PERRLA. Ears: Normal hearing. Normal anatomy. Neck/trachea: Trachea midline, supple. Nose: Normal external anatomy. Mouth: Moist mucous membranes. Chest: Decrease air entry bilaterally. Bilateral wheezing . No rhonchi. Cardio vascular: Positive S1, positive S2. Regular rate and rhythm. Abdomen: Positive bowel sounds in all 4 quadrants. Soft, non-tender, non- distended. : Deferred. Rectal: Deferred Skin: Warm, dry. Extremities: 2+ radial pulses bilaterally. No lower extremity edema. Neuro: Awake, alert, oriented x3. No gross motor or sensory deficits. Cranial nerves II through XII intact. Gait not assessed. Labs/Diagnostic Data Labs Test 08/14/24 15:06 08/14/24 11:38 08/14/24 06:25 08/13/24 15:12 Range/Units D-Dimer, Quantitative 0.43 0.0-0.49 mg/L FEU POC Glucose 104 70-106 mg/dl White Blood Count 4.7 4.4-10.8 10^3/uL Red Blood Count 3.70 L 4.0-5.20 10^6/uL Hemoglobin 12.2 12.2-16.2 g/dL Hematocrit 37.9 36.0-46.0 % Mean Corpuscular Volume 102.2 H 80.0-100.0 fL Mean Corpuscular Hemoglobin 32.9 H 28.0-32.0 pg Mean Corpuscular Hemoglobin Concent 32.2 32.0-36.0 g/dL Red Cell Distribution Width 17.8 H 11.8-14.3 % Platelet Count 238 140-450 10^3/uL Mean Platelet Volume 9.0 6.9-10.8 fL Neutrophils (%) (Auto) 73.1 37.0-80.0 % Lymphocytes (%) (Auto) 17.5 10.0-50.0 % Monocytes (%) (Auto) 8.8 0.0-12.0 % Eosinophils (%) (Auto) 0.1 0.0-7.0 % Basophils (%) (Auto) 0.5 0.0-2.0 % Neutrophils # (Auto) 3.5 1.6-8.6 10 ^3/uL Lymphocytes # (Auto) 0.8 0.4-5.4 10 ^3/uL Monocytes # (Auto) 0.4 0-1.3 10 ^3/uL Eosinophils # (Auto) 0 0-0.8 10 ^3/uL Basophils # (Auto) 0 0-0.2 10 ^3/uL Nucleated Red Blood Cells 0.1 % Sodium Level 131 L 136-145 mmol/L Potassium Level 4.2 3.5-5.1 mmol/L Chloride Level 100 98-107 mmol/L Carbon Dioxide Level 23 20-31 mmol/L Anion Gap 8 5-15 Blood Urea Nitrogen 8 L 9-23 mg/dL Creatinine 0.72 0.550-1.02 mg/dL Glomerular Filtration Rate Calc 91 >90 mL/min BUN/Creatinine Ratio 11.1 10.0-20.0 Serum Glucose 102 74-106 mg/dL Calcium Level 9.9 8.7-10.4 mg/dL Total Bilirubin 0.3 0.2-1.0 mg/dL Aspartate Amino Transferase (AST) 17 13-40 U/L Alanine Aminotransferase (ALT) 11 7-40 U/L Alkaline Phosphatase 70 46-116 U/L Total Protein 7.2 5.7-8.2 g/dL Albumin 4.6 3.2-4.8 g/dL Troponin I High Sensitivity 3 L </=34 ng/L Thyroid Stimulating Hormone (TSH) 75.64 H 0.55-4.78 uIU/mL Assessment Impression: Acute exacerbation of COPD Lung cancer Pulmonary embolism , history Hyponatremia Generalized weakness Pulmonary cachexia, BMI 16 Pulmonary nodules Plan: CT of the chest report and images reviewed. No acute pulmonary embolism. No enlargement of the pulmonary trunk. Three pulmonary nodules were noted. One pulmonary nodule in the right lung field. Supplemental oxygen on 2 liters/minute via nasal cannula Keep O2 saturation above 92%. Continue bronchodilators Continue IV steroids Accu-Cheks, insulin sliding scale Monitor renal function Monitor electrolytes. Supplement as necessary. Monitor ins and outs. IV fluids at 60 mL an hour GI prophylaxis-Pepcid Prognosis: Poor given multiple comorbidities. Rest of plan per hospitalist and other consultants. Thank you TATYANA Sanchez for allowing me to participate in this patient's care. Further recommendations will depend on patient's clinical course. Please do not hesitate to contact me if you have any questions or concerns. This medical document was created using an electronic medical record system with [employer] dictation system. Although this document has been carefully reviewed, there may still be some phonetic and typographical errors. These areas are purely typographical due to imperfections of the software programs, and do not reflect any compromise in the patient's medical care. Plan discussed with: Other ([employer]) MEL HINTON MD Aug 14, 2024 18:47
[2024-08-14] MEDS: hydrALAZINE HCL 20 MG/ML VL IV PRN (21:56)
--- NOTE | 2024-08-14 23:06 | DVHPN2 ---
Progress Note - Dictate Date Seen: Aug 14, 2024 Medical Necessity Reason Pt with a Central, PICC or Fol: No Subjective Patient seen and examined at bedside. Remains on supplemental oxygen Overnight events reviewed. vital signs Vital Sign Date Time Temp Pulse Resp B/P (MAP) Pulse Ox O2 Delivery O2 Flow Rate FiO2 08/14/24 22:06 86 18 167/79 08/14/24 21:49 100 08/14/24 21:43 Nasal Cannula* 2 28 08/14/24 14:45 98.3 98.3 Total Intake and Output 08/13/24 08/13/24 08/14/24 15:00 23:00 07:00 Intake Total 360 ml Balance 360 ml medications Current Medications Medications Dose Ordered Sig/Jackie Route Start Time Stop Time Status Last Admin Dose Admin Albuterol 2.5 mg Q4HPRN PRN NEB 08/13/24 22:45 08/14/24 15:19 2.5 MG Ipratropium [place] 0.5 mg Q4HPRN PRN NEB 08/13/24 22:45 08/14/24 15:19 0.5 MG Methylprednisolone Sodium Succinate 40 mg BID IV 08/14/24 10:00 08/14/24 21:56 40 MG Famotidine 20 mg DAILY IV 08/14/24 10:00 Hydralazine HCl 10 mg Q6HP PRN IV 08/13/24 22:45 08/14/24 21:56 10 MG Diagnostic Test (Pha) 1 strip ACHS 08/14/24 07:00 08/14/24 21:58 1 STRIP Insulin Human Regular ACHS SC 08/14/24 07:00 Dextrose 50 ml UD PRN IV 08/13/24 22:45 Sodium Chloride 1,000 ml @ 60 mls/hr [id number] IV 08/13/24 22:45 08/14/24 15:40 60 MLS/HR Acetaminophen/ Hydrocodone Bitart 1 tab Q4HP PRN PO 08/13/24 22:45 08/14/24 20:15 1 TAB Ondansetron HCl 4 mg Q4HP PRN IV 08/13/24 22:45 Docusate Sodium 100 mg BIDPRN PRN PO 08/13/24 22:45 Acetaminophen 650 mg Q6HP PRN PO 08/13/24 22:45 Nitroglycerin 0.4 mg Q5MINP PRN SL 08/13/24 22:45 Morphine Sulfate 2 mg Q30M PRN IV 08/13/24 22:45 08/14/24 22:06 2 MG Levothyroxine Sodium 75 mcg QAM@0600 PO 08/14/24 06:00 08/14/24 06:00 75 MCG Albuterol 2.5 mg Q4HR NEB 08/14/24 18:00 08/14/24 21:43 2.5 MG Ipratropium [place] 0.5 mg Q4HR NEB 08/14/24 18:00 08/14/24 21:43 0.5 MG objective Gen.: Patient lying in bed in no apparent distress. On supplemental oxygen. Head: Normocephalic, atraumatic. Eyes: EOMI/PERRLA. Ears: Normal hearing. Normal anatomy. Neck/trachea: Trachea midline, supple. Nose: Normal external anatomy. Mouth: Moist mucous membranes. Chest: Decreased air entry bilaterally. No wheezing or rhonchi. Cardiovascular: Positive S1, positive S2. Regular rate and rhythm. Abdomen: Positive bowel sounds in all 4 quadrants. Soft, non-tender, non- distended. : Deferred. Rectal: Deferred. Skin: Warm, dry. Intact. Extremities: 2+ radial pulses bilaterally. No lower extremity edema. Neuro: Awake, alert, oriented x3. No gross motor or sensory deficits. Cranial nerves II through XII intact. Gait not assessed. laboratory and microbiology Laboratory Tests 08/14/24 06:25 Test 08/14/24 06:25 Range/Units Serum Glucose 102 74-106 mg/dL Assessment/Plan Impression: Acute exacerbation of COPD Acute hypoxic respiratory failure Lung cancer Pulmonary embolism , history Hyponatremia Generalized weakness Pulmonary cachexia, BMI 16 Pulmonary nodules Lung cancer Events: Remains on supplemental oxygen, 2 LPM NC Taper O2 as tolerated Continue bronchodilators Continue steroids Monitor renal function Monitor electrolytes. Supplement as necessary. Monitor sodium IV fluid hydration Labs and imaging reviewed. Rest of plan as noted below. Plan: CT of the chest report and images reviewed. No acute pulmonary embolism. No enlargement of the pulmonary trunk. Three pulmonary nodules were noted. One pulmonary nodule in the right lung field. Supplemental oxygen Keep O2 saturation above 92%. Continue bronchodilators Continue IV steroids Accu-Cheks, insulin sliding scale Monitor renal function Monitor electrolytes. Supplement as necessary. Monitor ins and outs. IV fluids at 60 mL an hour GI prophylaxis-Pepcid Prognosis: Guarded given multiple comorbidities. Rest of plan per hospitalist and other consultants. Thank you TATYANA Sanchez for allowing me to participate in this patient's care. Further recommendations will depend on patient's clinical course. Please do not hesitate to contact me if you have any questions or concerns. This medical document was created using an electronic medical record system with [employer] dictation system. Although this document has been carefully reviewed, there may still be some phonetic and typographical errors. These areas are purely typographical due to imperfections of the software programs, and do not reflect any compromise in the patient's medical care. Plan discussed with: Patient, Other (RN) MEL HINTON MD Aug 14, 2024 23:06
--- NOTE | 2024-08-15 09:42 | DVHDS2 ---
Discharge Summary Date of Admission Aug 13, 2024 at 22:45 Date of Discharge: Aug 14, 2024 Admitting Diagnosis COPD exacerbation Wounds: None Labs/Diagnostic Data: Laboratory Results Test 08/14/24 21:39 08/14/24 15:06 08/14/24 06:25 08/13/24 15:12 POC Glucose 120 mg/dl (70-106) D-Dimer, Quantitative 0.43 mg/L FEU (0.0-0.49) White Blood Count 4.7 10^3/uL (4.4-10.8) Red Blood Count 3.70 10^6/uL (4.0-5.20) Hemoglobin 12.2 g/dL (12.2-16.2) Hematocrit 37.9 % (36.0-46.0) Mean Corpuscular Volume 102.2 fL (80.0-100.0) Mean Corpuscular Hemoglobin 32.9 pg (28.0-32.0) Mean Corpuscular Hemoglobin Concent 32.2 g/dL (32.0-36.0) Red Cell Distribution Width 17.8 % (11.8-14.3) Platelet Count 238 10^3/uL (140-450) Mean Platelet Volume 9.0 fL (6.9-10.8) Neutrophils (%) (Auto) 73.1 % (37.0-80.0) Lymphocytes (%) (Auto) 17.5 % (10.0-50.0) Monocytes (%) (Auto) 8.8 % (0.0-12.0) Eosinophils (%) (Auto) 0.1 % (0.0-7.0) Basophils (%) (Auto) 0.5 % (0.0-2.0) Neutrophils # (Auto) 3.5 10 ^3/uL (1.6-8.6) Lymphocytes # (Auto) 0.8 10 ^3/uL (0.4-5.4) Monocytes # (Auto) 0.4 10 ^3/uL (0-1.3) Eosinophils # (Auto) 0 10 ^3/uL (0-0.8) Basophils # (Auto) 0 10 ^3/uL (0-0.2) Nucleated Red Blood Cells 0.1 % Sodium Level 131 mmol/L (136-145) Potassium Level 4.2 mmol/L (3.5-5.1) Chloride Level 100 mmol/L (98-107) Carbon Dioxide Level 23 mmol/L (20-31) Anion Gap 8 (5-15) Blood Urea Nitrogen 8 mg/dL (9-23) Creatinine 0.72 mg/dL (0.550-1.02) Glomerular Filtration Rate Calc 91 mL/min (>90) BUN/Creatinine Ratio 11.1 (10.0-20.0) Serum Glucose 102 mg/dL (74-106) Calcium Level 9.9 mg/dL (8.7-10.4) Total Bilirubin 0.3 mg/dL (0.2-1.0) Aspartate Amino Transferase (AST) 17 U/L (13-40) Alanine Aminotransferase (ALT) 11 U/L (7-40) Alkaline Phosphatase 70 U/L (46-116) Total Protein 7.2 g/dL (5.7-8.2) Albumin 4.6 g/dL (3.2-4.8) Troponin I High Sensitivity 3 ng/L (</=34) Thyroid Stimulating Hormone (TSH) 75.64 uIU/mL (0.55-4.78) Other Laboratory Tests 08/14/24 06:25 Brief Hx & Hospital Course: 69-year-old female with a hypertension hypothyroidism diabetes history of cancer COPD on home oxygen came in with a worsening shortness of breath, treated with albuterol Atrovent and Solu-Medrol. Patient feels slightly better seen by pulmonology Dr. Hart. While awaiting further stabilization patient left AMA from the emergency room. Complications including possible explained to the patient and she verbalized understanding. General condition satisfactory at the time of leaving AMA per nurse's notes Consults/Reason for consult Pulmonology Dr. Hart Operations or Procedures None Condition at Discharge: Fair Final Diagnosis/Problems List Acute on chronic hypoxic respiratory failure: Oxygen by nasal cannula Acute COPD exacerbation: Albuterol Atrovent Solu-Medrol Hypertension Hypothyroidism Uncontrolled diabetes: History of cancer Hypothyroidism: Synthroid Discharge Disposition: AMA Discharge Instruct/Medications Diet comment: Left AMA Not applicable Activity comment: Left AMA Not applicable Follow Up/Referral: Left AMA Not applicable Medications: Left AMA Not applicable 35 (Time taken for discharge summary 35 minutes) Discharge Statement: "Patient was advised to return to the ER or call 911 if any headaches, dizziness, shortness of breath, chest pain, abdominal pain, bleeding, fevers, or worsening of medical condition. Patient was counseled about treatment plan, medications, possible side effects, patientverbalized understanding. All questions were answered to the best of my ability. This discharge took greater then 30 minutes in planning, reviewing documentation, counseling the patient, and discussing with other team members." ASSESSMENT ASSESSMENT Hospital Course Marginally improved Left AMA Assessment Date of Service: Aug 15, 2024 Billing Provider: ASHLIE BAKER MD Common Visit Codes: 71453-RLB/OBS DISCH DAY >30min ASHLIE BAKER MD Aug 15, 2024 09:42
== END 2024-08-15 02:15 | disposition left against medical advice (07) | DRG 189 ==
LOC: EDBD 13:18 → ER 13:18 → TELE 22:45 → TELE-CENTR 08-14 20:49
PROVIDERS: ADMIT Nurse Practitioner Family; ATTEND Nurse Practitioner Family
DX: J96.21 Acute and chronic respiratory failure with hypoxia (principal); J44.1 Chronic obstructive pulmonary disease with (acute) exacerbation; E87.1 Hypo-osmolality and hyponatremia; R64 Cachexia; Z68.1 Body mass index [BMI] 19.9 or less, adult; I10 Essential (primary) hypertension; Z53.29 Procedure and treatment not carried out because of patient's decision for other reasons; E03.9 Hypothyroidism, unspecified; E11.9 Type 2 diabetes mellitus without complications; Z87.891 Personal history of nicotine dependence; Z86.711 Personal history of pulmonary embolism; Z85.118 Personal history of other malignant neoplasm of bronchus and lung; Z99.81 Dependence on supplemental oxygen
CPT/HCPCS: 36415; 71046; 71275; 80053; 82962; 84443; 84484; 85025; 85379; 93005; 94640; G0378; J1100

== ENCOUNTER 2024-08-15 03:01 | Emergency (ER) | payer OTHER, MEDICAID ==
[2024-08-15 03:10] VITALS: PULSE 90; RESP 20; O2SAT 96
--- NOTE | 2024-08-15 03:13 | ED.PDOC ---
History of Present Illness HPI Comments 69 y/o F, with a Hx of lung cancer, COPD, DM, HTN, and hospice care, presents with c/o shortness of breath, today. Patient endorses on returning to the ED after, recently, being admitted and leaving against medical advice for COPD, earlier, this morning. She denies having any chest pain, cough, fever, chills, or other associated symptoms or modifiers at this time. cta was done which is negative for PE, cxr showed no infiltrates. pt now agrees to stay in the hospital Chief Complaint: Shortness of Breath Time Seen by MD: 03:00 Reviewed Notes: Nurses Notes, Medications, Allergies Allergies: Uncoded Allergies: Seizure Medication (Allergy, Unknown, 08/13/24) Information Source: Patient Mode of Arrival: Ambulatory Severity: Moderate Timing: Hours Duration: Since onset Prehospital treatment: None Past Medical History PAST MEDICAL HISTORY: Cancer (lung ), COPD (w/4LPM home O2), DM, HTN Surgical History: Denies all surgeries SANITARIAN INSPECTOR History: Denies all SANITARIAN INSPECTOR Hx Family History Family History: Reviewed,noncontributory to illness Social History Smoker: Quit Greater Than 1 Year Alcohol: Denies ETOH Use Drugs: Denies Drug Use Lives In: [facility] Respiratory: reports: shortness of breath All Other Systems: Reviewed and Negative (negative unless otherwise stated above or in HPI) Physical Exam General Appearance: No Apparent Distress, Thin HEENT: Normal ENT Inspection, Pharynx Normal, TMs Normal Neck: Full Range of Motion, Non-Tender, Normal, Normal Inspection Respiratory: Chest Non-Tender, Lungs Clear, No Accessory Muscle Use, No Respiratory Distress, Normal Breath Sounds Cardiovascular: No Edema, No JVD, No Murmur, No Gallop, Normal Peripheral Pulses, Regular Rate/Rhythm Breast Exam: Deferred Gastrointestinal: No Organomegaly, Non Tender, No Pulsatile Mass, Normal Bowel Sounds, Soft Genitalia: Deferred Pelvic: Deferred Rectal: Deferred Extremities: No calf tenderness, Normal capillary refill, Normal inspection, Normal range of motion, Non-tender, No pedal edema Musculoskeletal : Apperance: Normal Neurologic: Alert, research assistant professor II-XII nml as Tested, No Motor Deficits, Normal Affect, Normal Mood, No Sensory Deficits Cerebellar Function: Normal Reflexes: Normal Skin: Dry, Normal Color, Warm Lymphatic: No Adenopathy Was a procedure done? Was a procedure done?: No Differential Dx Considerations may include: COPD exacerbation, pneumonia, chf, PE, ACS Time of 1ST Reevaluation: 03:30 Reevaluation 1ST: Unchanged Patient Education/Counseling: Diagnosis, Treatment, Prognosis, Need For Follow Up Family Education/Counseling: No Family Present Departure 1 Departure Time of Disposition: 03:17 Impression: Primary Impression: COPD with acute exacerbation Additional Impression: Noncompliance Disposition: 09 ADMITTED INPATIENT Admit to: Tele Condition: Serious Critical Care Note Critical Care Time?: Yes (30 min-critical care time only) Critical care comment: due to concerns for deterioration of patient's condition, the care required my highest level of attention and readiness. i assessed the patient's condition, reviewed relevant documents, communicated with medical personnel, ordered the proper tests and treatments, reassed fro results and response to treatments, spoke to family and consultants and formulated a plan of care Stability Stability form required: No Heart Score Heart Score: Heart Score Response (Comments) Value History Highly Suspicious 2 EKG N/A 0 Age >65 2 Risk Factors >3 or Hx ASHD 2 Troponin N/A 0 Total 6 I personally scribed for AMARJIT BETANCOURT MD ([email or web address]) on 08/15/24 at 03:13. Electronically submitted by Jerod Masters [email or web address]). AMARJIT BETANCOURT MD Aug 15, 2024 03:13
[2024-08-15] MEDS: MAGNESIUM SULFATE 1GM/100ML 100 ML IV ONE (03:15)
[2024-08-15] MEDS: ALBUTEROL SULF 2.5 MG/0.5ML(0.5%) NEB SOLN NEB ONE (03:28)
[2024-08-15] MEDS: IPRATROPIUM BROM 0.5 MG/2.5ML INH SOL NEB ONE (03:28)
[2024-08-15] MEDS: methylPREDNISolone SOD SUCC 125 MG/2 ML VL IV ONE (03:45)
[2024-08-15 04:15] VITALS: PULSE 73; RESP 29; O2SAT 97
[2024-08-15] MEDS: ALPRAZolam 0.25 MG TAB PO ONE (05:03)
[2024-08-15 07:30] VITALS: BP 134/72; PULSE 93; RESP 28; TEMP 98; O2SAT 93
[2024-08-15] MEDS: LORazepam 2MG/ML-1ML VIAL IV ONE (08:05)
[2024-08-15] MEDS ORDERED: IPRATROPIUM BROM 0.5 MG/2.5ML INH SOL NEB PRN (08:30)
[2024-08-15] MEDS ORDERED: SODIUM CHLORIDE 0.9% 1,000 ML IV SCH (08:30)
[2024-08-15] MEDS ORDERED: ONDANSETRON HCL 4 MG/2 ML VIAL IV PRN (08:30)
[2024-08-15] MEDS ORDERED: DOCUSATE SOD 100 MG CAP PO PRN (08:30)
[2024-08-15] MEDS ORDERED: ALBUTEROL SULF 2.5 MG/0.5ML(0.5%) NEB SOLN NEB PRN (08:30)
[2024-08-15] MEDS ORDERED: ACETAMINOPHEN 325 MG TAB PO PRN (08:30)
[2024-08-15] MEDS ORDERED: HYDROcodone-ACET 5/325MG TAB PO PRN (08:30)
[2024-08-15] MEDS ORDERED: FAMOTIDINE (10MG/ML) 2ML VL IV SCH (10:00)
[2024-08-15] MEDS ORDERED: methylPREDNISolone SOD SUCC 40 MG/ML VL IV SCH (14:00)
== END 2024-08-15 08:18 | disposition left against medical advice (07) ==
LOC: ER 03:01
DX: J44.1 Chronic obstructive pulmonary disease with (acute) exacerbation (principal); I10 Essential (primary) hypertension; E11.9 Type 2 diabetes mellitus without complications; Z87.891 Personal history of nicotine dependence; Z88.8 Allergy status to other drugs, medicaments and biological substances
CPT/HCPCS: 94640; 96374; 96375; 99291; J2060; J2919; J3475

== ENCOUNTER 2024-08-15 15:18 | Inpatient (IN) | payer OTHER, MEDICAID ==
[~2024-08-15] VITALS: Ht 167.6 cm; Wt 26.9 kg
--- NOTE | 2024-08-15 15:39 | ED.PDOC ---
History of Present Illness HPI Comments 69 y/o F brought in by ambulance with PMHX of COPD, lung cancer, DM, and HTN presents to the ED for CC of body pain. Patient, states she has been experiencing body pain x1hour. Patient was seen at [facility] today (08/15/24) for c/o shortness of breath; patient eloped. Patient returned due to symptoms not improving. Patient denies any chest pain, shortness of breath, chillls, headache, or N/V/D. Time Seen by MD: 15:10 Reviewed Notes: Nurses Notes, Kiln Transfer Operator Notes, Medications, Allergies Allergies: Uncoded Allergies: Seizure Medication (Allergy, Unknown, 08/13/24) Information Source: Patient, Emergency Med Personnel Mode of Arrival: EMS Severity: Mild Timing: Minutes Duration: Since onset Prehospital treatment: None Past Medical History PAST MEDICAL HISTORY: Cancer, COPD, DM, HTN Surgical History: Denies all surgeries MULTIMEDIA EDUCATIONAL SPECIALIST History: Denies all MULTIMEDIA EDUCATIONAL SPECIALIST Hx Family History Family History: Reviewed,noncontributory to illness Social History Smoker: Quit Greater Than 1 Year Alcohol: Denies ETOH Use Drugs: Denies Drug Use Lives In: Shelter Constitutional: denies: chills, diaphoresis, fatigue, fever, malaise, sweats, weakness, others EENTM: denies: blurred vision, double vision, ear bleeding, ear discharge, ear drainage, ear pain, ear ringing, eye pain, eye redness, hearing loss, mouth pain, mouth swelling, nasal discharge, nose bleeding, nose congestion, nose pain, photophobia, tearing, throat pain, throat swelling, voice changes, others Respiratory: denies: cough, hemoptysis, orthopnea, SOB at rest, shortness of breath, SOB with excertion, stridor, wheezing, others Cardiovascular: denies: chest pain, dizzy spells, diaphoresis, Dyspnea on exertion, edema, irregular heart beat, left arm pain, lightheadedness, pal pitations, PND, syncope, others Gastrointestinal: denies: abdomen distended, abdominal pain, blood streaked bowels, constipated, diarrhea, dysphagia, difficulty swallowing, hematemesis, melena, nausea, poor appetite, poor fluid intake, rectal bleeding, rectal pain, vomiting, others Genitourinary: denies: abnormal vagina bleeding, burning, dyspareunia, dysuria, flank pain, frequency, hematuria, incontinence, pain, , vagina discharge, urgency, others Neurological: denies: dizziness, fainting, headache, left sided numbness, left sided weakness, numbness, paresthesia, pre-existing deficit, right sided numbness, right sided weakness, seizure, speech problems, tingling, tremors, weakness, others Musculoskeletal: reports: others (body pain); denies: back pain, gout, joint pain, joint swelling, muscle pain, muscle stiffness, neck pain Integumetry: denies: bruises, change in color, change in hair/nails, dryness, laceration, lesions, lumps, rash, wounds, others Allergic/Immunocompromised: denies: Difficulty Healing, Frequent Infections, Hives, Itching, others Hematologic/Lymphatic: denies: anemia, blood clots, easy bleeding, easy bruising, swollen glands, others Endocrine: denies: excessive hunger, excessive sweating, excessive thirst, excessive urination, flushing, intolerance to cold, intolerance to heat, unexplained weight gain, unexplained weight loss, others Psychiatric: denies: anxiety, bipolar disorder, depression, hopeless, panic disorder, schizophrenia, sleepless, suicidal, others All Other Systems: Reviewed and Negative Physical Exam General Appearance: Moderate Distress HEENT: Normal ENT Inspection, Pharynx Normal, TMs Normal Neck: Full Range of Motion, Non-Tender, Normal, Normal Inspection Respiratory: Chest Non-Tender, No Accessory Muscle Use, Other (Coarse breath sounds) Cardiovascular: No Edema, No JVD, No Murmur, No Gallop, Normal Peripheral Pulses, Regular Rate/Rhythm Breast Exam: Deferred Gastrointestinal: No Organomegaly, Non Tender, No Pulsatile Mass, Normal Bowel Sounds, Soft Genitalia: Deferred Pelvic: Deferred Rectal: Deferred Extremities: No calf tenderness, Normal capillary refill, Normal inspection, Normal range of motion, Non-tender, No pedal edema Musculoskeletal : Apperance: Normal Neurologic: Alert, brush holder inspector II-XII nml as Tested, No Motor Deficits, Normal Affect, Normal Mood, No Sensory Deficits Cerebellar Function: NOT DONE Reflexes: NOT DONE Skin: Dry, Normal Color, Warm Peripheral Pulses: 3+ Radial (R), 3+ Radial (L) Lymphatic: No Adenopathy Was a procedure done? Was a procedure done?: No Differential Dx Considerations may include: Anemia Electrolyte imbalance X-Ray, Labs, Meds, VS Patient alert. Came in because of possible vasovagal syncope. Was care few times yesterday for shortness a breath. Vitals stable. Answering all questions. She is short of breath upon answering questions. Possible COPD exacerbation. Reviewed her previous visit. Explained to the patient. Continue cardiac monitoring. Time of 1ST Reevaluation: 15:40 Reevaluation 1ST: Unchanged Patient Education/Counseling: Diagnosis, Treatment Family Education/Counseling: No Family Present Departure 1 Departure Time of Disposition: 15:51 Impression: Primary Impression: COPD with acute exacerbation Additional Impression: Vasovagal syncope Disposition: ADMITTED INPATIENT Admit to: Med Surg Condition: Guarded Critical Care Note Critical Care Time?: No Stability Stability form required: No Heart Score Heart Score: Heart Score Response (Comments) Value History N/A 0 EKG N/A 0 Age N/A 0 Risk Factors N/A 0 Troponin N/A 0 Total 0 I personally scribed for SUNNY ESCALERA MD ([email or web address]) on 08/15/24 at 15:39. Electronically submitted by Michelle Valencia ([email or web address]). I personally scribed for SUNNY ESCALERA MD ([email or web address]) on 08/15/24 at 15:45. Electronically submitted by Michelle Valencia ([email or web address]). SUNNY ESCALERA MD Aug 15, 2024 15:39
[2024-08-15 16:48] LABS: Anion Gap 11 (5-15); Carbon Dioxide 25 mmol/L (20-31)
[2024-08-15 16:51] LABS: Calcium 11.1 mg/dL (8.7-10.4); Chloride 91 mmol/L (98-107); Sodium 127 mmol/L (136-145)
[2024-08-15 16:53] LABS: BUN/Creatinine Ratio 27.9 (10.0-20.0); Blood Urea Nitrogen 17 mg/dL (9-23); Glucose 97 mg/dL (74-106)
--- NOTE | 2024-08-15 21:46 | DVHHPRES ---
History of Present Illness Resident Creating Document[facility] History of Present Illness This is a 69-year-old female poor history and with past medical history of COPD (on home oxygen, diabetes, hypertension, lung cancer, and hypothyroidism brought to the hospital by imbalance due to generalized body pain. Per patient, the patient had generalized body pain since 1 hour. She also reports shortness of breaths. The patient was admitted on 08/15/2024 in [facility] for COPD exacerbation and left AMA on 08/15/2024, had admitted back on 08/15/2024 due to shortness of breaths but later on eloped and later on brought to the hospital by ambulance due to generalized body pain. Per my assessment, the patient denies fever, nausea, vomiting, any recent bowel and bladder habit changes and motor or sensory deficits. PMHx: COPD (on home oxygen), hypertension, hypothyroidism PSHx: On chest x-ray there are sternal sutures and surgical clips, may have history of open heart surgery, but the patient did not provide any history of heart surgery Home medication: Levothyroxine, albuterol, gabapentin, montelukast Allergic history: Valproic acid Review of Systems Review of Systems General: Reports generalized body pain HEENT: No headaches, visiual changes, hearing loss, tinnitus, nasal congestion and discharge, and sore throat. Cardiovascular: Denies chest pain, palpitations, dyspnea on exertion, orthopnea, or claudication. Respiratory: Reports shortness of breath Gastrointestinal: Denies nausea, vomiting, dysphagia, odynophagia, heartburn, abdominal pain, flatulence, bloating, diarrhea, constipation, change in stool, or blood in stool. Genitourinary: No dysuria, hematuria, discharge, frequency, urgency, nocturia, incontinence, and urinary retention. Endocrine: No heat or cold intolerance, polydipsia, polyuria, and polyphagia. Neurological: No dizziness, extremity weakness and numbness, tremors, gait disturbance, seizures, and memory impairment. Psychiatric: Denies depression, anxiety,or insomnia. Musculoskeletal: Denies neck pain, stiffness and swelling, back pain, muscle weakness, joint pain, stiffness, swelling, or limited range of motion. Skin: No rashes, itching, skin lesion, changes in hair, nail, skin texture and breast. Hematologic/Lymphatic: Denies easy bruising, bleeding tendencies, or lymph node enlargement. Allergies: Coded Allergies: Valproic Acid (Verified Allergy, Unknown, 08/15/24) Uncoded Allergies: Seizure Medication (Allergy, Unknown, 08/13/24) Exam Vital Signs Vital Signs Date Time Temp Pulse Resp B/P (MAP) Pulse Ox O2 Delivery O2 Flow Rate FiO2 08/15/24 19:34 76 16 99 Nasal Cannula 2.0 08/15/24 19:34 97.6 163/89 (113) 97.6 Exam General Appearance: An elderly cachectic female, alert and oriented, but not cooperative HEENT: Atraumatic, PERRLA, EOMI, Mucous membrane moist/pink Respiratory: Bilateral decreased breath sounds Cardiovascular: Regular rate, Normal S1, Normal S2, No murmurs, no chest wall tenderness Abdominal: Normal bowel sounds, Soft, No tenderness, No hepatospenomegaly, No masses Extremities: No clubbing, No cyanosis, No edema, Normal pulses, No tenderness/swelling Skin: No rashes, No breakdown, No significant lesion Neuro: Normal gait, Normal speech, Strength at 5/5 X4 ext, Normal tone, Sensation intact, Cranial nerves 3-12 NL, Reflexes 2+ Psych/Mental Status: Mental status NL, Mood NL Labs/Xrays Labs Test 08/15/24 16:20 Range/Units Sodium Level 127 L 136-145 mmol/L Potassium Level 4.0 3.5-5.1 mmol/L Chloride Level 91 L 98-107 mmol/L Carbon Dioxide Level 25 20-31 mmol/L Anion Gap 11 5-15 Blood Urea Nitrogen 17 9-23 mg/dL Creatinine 0.61 0.550-1.02 mg/dL Glomerular Filtration Rate Calc 97 >90 mL/min BUN/Creatinine Ratio 27.9 H 10.0-20.0 Serum Glucose 97 74-106 mg/dL Calcium Level 11.1 H 8.7-10.4 mg/dL Assessment/Plan Assessment/Plan Acute on chronic hypoxic respiratory failure, likely due to COPD exacerbation COPD exacerbation Sepsis, likely due to pneumonia Pneumonia, likely due to Gram-positive Gram-negative bacteria Acute pneumonitis Chest x-ray shows hyperinflated lung with sternal suture and surgical clips Influenza a type a, type B and COVID-19 are negative Empiric antibiotic of azithromycin and ceftriaxone IV fluid Oxygen through nasal cannula Breathing treatment History of hypothyroidism TSH for 08/13/2024 is 75.64 Continue levothyroxine 75 mcg History of diabetes Serum glucose is 97 Check Hb A1c History of lung cancer CT from 08/13/2024, shows 3 pulmonary nodules left lung field and 1 pulmonary nodule right lung field Asymptomatic hypercalcemia , likely due to dehydration DVT PROPHYLAXIS: Lovenox GI PROPHYLAXIS:: Protonix DISPOSITION: Med/surge Case discussed with Dr. Riley Plan discussed with: Patient, Other (RN) Date of Service: Aug 15, 2024 Billing Provider: LIANG SUAREZ MD Common Visit Codes: 95693-[id number] INP/OBS CARE (HIGH) KIRITLETICIAROSITA RESDIENT Aug 15, 2024 21:45 LIANG SUAREZ MD Aug 16, 2024 09:30
[2024-08-15 21:51] LABS: Basophils # (auto) 0 10 ^3/uL (0-0.2); Basophils % (auto) 0.3 % (0.0-2.0); Eosinophils # (auto) 0 10 ^3/uL (0-0.8); Eosinophils % (auto) 0.1 % (0.0-7.0); Hematocrit 41.1 % (36.0-46.0); Hemoglobin 13.5 g/dL (12.2-16.2); Lymphocytes % (auto) 8.5 % (10.0-50.0); Mean Corpuscular Hemoglobin 32.1 pg (28.0-32.0); Mean Corpuscular Hgb Conc. 32.8 g/dL (32.0-36.0); Monocytes # (auto) 1.3 10 ^3/uL (0-1.3); Monocytes % (auto) 10.9 % (0.0-12.0); Neutrophils # (auto) 9.7 10 ^3/uL (1.6-8.6); Neutrophils % (auto) 80.2 % (37.0-80.0); Nucleated Red Blood Cells % 0.1 %; Platelet Count (auto) 386 10^3/uL (140-450); Red Cell Distribution Width 17.6 % (11.8-14.3); White Blood Cell 12.1 10^3/uL (4.4-10.8)
[2024-08-15] MEDS: AZITHROMYCIN 500MG/ 250ML 250 ML IV ONE (22:00)
[2024-08-15] MEDS: SODIUM CHLORIDE 0.9% 1,000 ML IV SCH (22:00)
[2024-08-15 22:21] VITALS: PULSE 68; RESP 16; O2SAT 93
[2024-08-15] MEDS: IPRATROPIUM BROM 0.5 MG/2.5ML INH SOL NEB SCH (22:21)
[2024-08-15] MEDS: ALBUTEROL SULF 2.5 MG/0.5ML(0.5%) NEB SOLN NEB SCH (22:21)
[2024-08-15 22:43] LABS: INR 1.01 (0.9-1.15); Prothrombin Time 10.7 sec (9.3-11.8)
[2024-08-15 22:49] VITALS: BP 168/89; PULSE 68; RESP 14; O2SAT 93
[2024-08-15 23:00] VITALS: O2SAT 95
[2024-08-15 23:01] LABS: COVID19 ANTIGEN SOFIA FIA NEGATIVE (NEGATIVE); Rapid Influenza A Negative (Negative); Rapid Influenza B Negative (Negative)
[2024-08-15] MEDS: SODIUM CHLORIDE 0.9% 1,000 ML IV ONE (23:19)
[2024-08-15] MEDS: cefTRIAXone 1GM/50ML D5W 50 ML IV ONE (23:23)
[2024-08-15] MEDS: PANTOPRAZOLE 40 MG/10 ML VIAL INJ IV ONE (23:27)
[2024-08-16] VITALS (8 sets, daily range): BP systolic 120–153; BP diastolic 69–76; PULSE 80–84; RESP 16–23; TEMP 97.3–98.2; O2SAT 94–100
[2024-08-16 00:11] LABS: Alanine Aminotransferase 20 U/L (7-40); Alkaline Phosphatase 77 U/L (46-116); Anion Gap 14 (5-15); BUN/Creatinine Ratio 21.4 (10.0-20.0); Bilirubin, Total 0.5 mg/dL (0.2-1.0); Blood Urea Nitrogen 12 mg/dL (9-23); Glucose 102 mg/dL (74-106); Magnesium 2.3 mg/dL (1.6-2.6)
[2024-08-16] MEDS: PANTOPRAZOLE 40 MG/10 ML VIAL INJ IV ONE (00:15)
[2024-08-16] MEDS: ENOXAPARIN SOD 40 MG/0.4 ML SYRINGE SC ONE (00:15)
[2024-08-16] MEDS ORDERED: ACETAMINOPHEN 325 MG TAB PO PRN (00:15)
--- NOTE | 2024-08-16 00:15 | DVH ---
CHEST RADIOGRAPH Indication: Pneumonia Technique: Single frontal view of the chest was obtained COMPARISON: None FINDINGS: Lines and Tubes: Sternal wires in place. Lungs: No pneumonia. COPD. Pleura: No effusion. No pneumothorax. Cardiomediastinal contours: Unremarkable Bones: Unremarkable IMPRESSION: 1. No acute disease.
[2024-08-16 00:16] LABS: Albumin 4.9 g/dL (3.2-4.8); Aspartate Aminotransferase 49 U/L (13-40); Calcium 10.8 mg/dL (8.7-10.4); Carbon Dioxide 18 mmol/L (20-31); Chloride 94 mmol/L (98-107); Potassium 3.7 mmol/L (3.5-5.1); Sodium 126 mmol/L (136-145)
[2024-08-16] MEDS: IBUPROFEN 600 MG TAB PO PRN (00:34)
[2024-08-16] MEDS: LORazepam 0.5 MG TAB PO ONE (00:37)
[2024-08-16] MEDS ORDERED: GABAPENTIN 300 MG CAP PO SCH ×2 (06:00→10:00)
[2024-08-16] MEDS: LEVOTHYROXINE SODIUM 25 MCG TAB PO SCH (06:16)
[2024-08-16] MEDS ORDERED: cefTRIAXone 1GM/50ML D5W 50 ML IV SCH (09:00)
[2024-08-16] MEDS ORDERED: PANTOPRAZOLE 40 MG/10 ML VIAL INJ IV SCH (10:00)
[2024-08-16] MEDS ORDERED: methylPREDNISolone SOD SUCC 40 MG/ML VL IV SCH (10:00)
--- NOTE | 2024-08-16 10:48 | DVHDSRES ---
Discharge Summary Date of Admission Resident Creating Document: NATIVIDAD JAY RESIDENT Aug 15, 2024 at 21:44 Date of Discharge: Aug 16, 2024 Admitting Diagnosis Acute hypoxic respiratory failure Wounds: No wounds present at this time. Labs/Diagnostic Data: Laboratory Results Test 08/15/24 22:19 08/15/24 22:17 08/15/24 21:35 Influenza Type A Antigen Negative (Negative) Influenza Type B Antigen Negative (Negative) SARS-CoV-2 Antigen (Rapid) Negative (NEGATIVE) Prothrombin Time 10.7 sec (9.3-11.8) Prothrombin Time INR 1.01 (0.9-1.15) Sodium Level 126 mmol/L (136-145) Potassium Level 3.7 mmol/L (3.5-5.1) Chloride Level 94 mmol/L (98-107) Carbon Dioxide Level 18 mmol/L (20-31) Anion Gap 14 (5-15) Blood Urea Nitrogen 12 mg/dL (9-23) Creatinine 0.56 mg/dL (0.550-1.02) Glomerular Filtration Rate Calc 99 mL/min (>90) BUN/Creatinine Ratio 21.4 (10.0-20.0) Serum Glucose 102 mg/dL (74-106) Lactic Acid Level 1.9 mmol/L (0.4-2.0) Calcium Level 10.8 mg/dL (8.7-10.4) Magnesium Level 2.3 mg/dL (1.6-2.6) Total Bilirubin 0.5 mg/dL (0.2-1.0) Aspartate Amino Transferase (AST) 49 U/L (13-40) Alanine Aminotransferase (ALT) 20 U/L (7-40) Alkaline Phosphatase 77 U/L (46-116) Total Protein 8.0 g/dL (5.7-8.2) Albumin 4.9 g/dL (3.2-4.8) White Blood Count 12.1 10^3/uL (4.4-10.8) Red Blood Count 4.20 10^6/uL (4.0-5.20) Hemoglobin 13.5 g/dL (12.2-16.2) Hematocrit 41.1 % (36.0-46.0) Mean Corpuscular Volume 98.0 fL (80.0-100.0) Mean Corpuscular Hemoglobin 32.1 pg (28.0-32.0) Mean Corpuscular Hemoglobin Concent 32.8 g/dL (32.0-36.0) Red Cell Distribution Width 17.6 % (11.8-14.3) Platelet Count 386 10^3/uL (140-450) Mean Platelet Volume 8.7 fL (6.9-10.8) Neutrophils (%) (Auto) 80.2 % (37.0-80.0) Lymphocytes (%) (Auto) 8.5 % (10.0-50.0) Monocytes (%) (Auto) 10.9 % (0.0-12.0) Eosinophils (%) (Auto) 0.1 % (0.0-7.0) Basophils (%) (Auto) 0.3 % (0.0-2.0) Neutrophils # (Auto) 9.7 10 ^3/uL (1.6-8.6) Lymphocytes # (Auto) 1.0 10 ^3/uL (0.4-5.4) Monocytes # (Auto) 1.3 10 ^3/uL (0-1.3) Eosinophils # (Auto) 0 10 ^3/uL (0-0.8) Basophils # (Auto) 0 10 ^3/uL (0-0.2) Nucleated Red Blood Cells 0.1 % Other Laboratory Tests 08/15/24 22:17 08/15/24 21:35 Brief Hx & Hospital Course: This is a 69-year-old female poor history and with past medical history of COPD (on home oxygen, diabetes, hypertension, lung cancer, and hypothyroidism brought to the hospital by imbalance due to generalized body pain. Per patient, the patient had generalized body pain since 1 hour. She also reports shortness of breaths. The patient was admitted on 08/15/2024 in [facility] for COPD exacerbation and left AMA on 08/15/2024, had admitted back on 08/15/2024 due to shortness of breaths but later on eloped and later on brought to the hospital by ambulance due to generalized body pain. Upon my examination the patient was on 3 L of oxygen through nasal cannula saturating 96% which is currently her baseline. On physical examination, bilateral lungs were grossly clear bilaterally with decreased breath sounds on bilateral lung bases likely due to COPD. No wheezes or crackles present at this time. We are going to continue IV antibiotics azithromycin, ceftriaxone methylprednisolone 40 mg IV q.d.. The patient decided to went AMA despite of explaining she will benefit for more treatment. Consults/Reason for consult N/A Operations or Procedures CHEST RADIOGRAPH Indication: Pneumonia Technique: Single frontal view of the chest was obtained COMPARISON: None FINDINGS: Lines and Tubes: Sternal wires in place. Lungs: No pneumonia. COPD. Pleura: No effusion. No pneumothorax. Cardiomediastinal contours: Unremarkable Bones: Unremarkable IMPRESSION: 1. No acute disease. Condition at Discharge: Undetermined Final Diagnosis/Problems List Acute on chronic hypoxic respiratory failure, likely due to COPD exacerbation COPD exacerbation Sepsis, likely due to pneumonia Pneumonia, likely due to Gram-positive Gram-negative bacteria Acute pneumonitis hypothyroidism Diabetes Mellitus History of lung cancer Discharge Disposition: AMA Discharge Statement: "Patient was advised to return to the ER or call 911 if any headaches, dizziness, shortness of breath, chest pain, abdominal pain, bleeding, fevers, or worsening of medical condition. Patient was counseled about treatment plan, medications, possible side effects, patientverbalized understanding. All questions were answered to the best of my ability. This discharge took greater then 30 minutes in planning, reviewing documentation, counseling the patient, and discussing with other team members." ASSESSMENT ASSESSMENT Assessment NATIVIDAD JAY RESIDENT Aug 16, 2024 10:48
[2024-08-16] MEDS ORDERED: AZITHROMYCIN 500MG/ 250ML 250 ML IV SCH (21:00)
[2024-08-17] MEDS ORDERED: ENOXAPARIN SOD 40 MG/0.4 ML SYRINGE SC SCH (10:00)
[2024-08-17] MEDS ORDERED: PANTOPRAZOLE 40 MG/10 ML VIAL INJ IV SCH (10:00)
== END 2024-08-16 10:36 | disposition left against medical advice (07) | DRG 871 ==
LOC: EDBD 15:18 → ER 15:18 → OVERFLOW 21:44 → WEST WING 08-16 01:18
PROVIDERS: ADMIT Student in an Organized Health Care Education/Training Program; ATTEND Student in an Organized Health Care Education/Training Program
DX: A41.59 Other Gram-negative sepsis (principal); J15.69 Pneumonia due to other Gram-negative bacteria; J96.21 Acute and chronic respiratory failure with hypoxia; J15.9 Unspecified bacterial pneumonia; J44.1 Chronic obstructive pulmonary disease with (acute) exacerbation; Z53.29 Procedure and treatment not carried out because of patient's decision for other reasons; E03.9 Hypothyroidism, unspecified; Z20.822 Contact with and (suspected) exposure to COVID-19; E11.9 Type 2 diabetes mellitus without complications; I10 Essential (primary) hypertension; Z85.118 Personal history of other malignant neoplasm of bronchus and lung; Z87.891 Personal history of nicotine dependence; Z88.8 Allergy status to other drugs, medicaments and biological substances; J98.4 Other disorders of lung
CPT/HCPCS: 36415; 71045; 80048; 80053; 83605; 83735; 85025; 85610; 87426; 87804; 94640; G0378; J2470

== ENCOUNTER 2024-08-16 14:45 | Emergency (ER) | payer OTHER, MEDICAID ==
[~2024-08-16] VITALS: Ht 154.9 cm; Wt 45.4 kg
--- NOTE | 2024-08-16 15:04 | ED.PDOC ---
History of Present Illness Comments 69 year old female with history of COPD, CHF and lung cancer now BIBA after she was found in the [facility] acting confused and lethargic. EMS states they gave oxygen by [place] and patient became alert and oriented. Patient was just in the hospital and apparently left AMA Time Seen by MD: 14:56 Reviewed Notes: Nurses Notes, Printing Roller Handler Notes Allergies: Coded Allergies: Valproic Acid (Verified Allergy, Unknown, 08/15/24) Uncoded Allergies: Seizure Medication (Allergy, Unknown, 08/13/24) Home Meds No Active Prescriptions or Reported Meds Information Source: Patient, Emergency Med Personnel Mode of Arrival: EMS Severity: Severe Timing: Days Duration: Days Past Medical History PAST MEDICAL HISTORY: Cancer, COPD, DM, HTN Surgical History: Denies all surgeries DB2 DEVELOPER History: Denies all DB2 DEVELOPER Hx Family History Family History: Reviewed,noncontributory to illness Social History Smoker: Quit Greater Than 1 Year Alcohol: Denies ETOH Use Drugs: Denies Drug Use Lives In: [facility] Constitutional: reports: fatigue, weakness Respiratory: reports: SOB at rest, shortness of breath, SOB with excertion Unable to Obtain due to: Altered Mental Status All Other Systems: Reviewed and Negative Physical Exam Exam Comments appears chronically ill, older than stated age General Appearance: Moderate Distress, Thin HEENT: Normal ENT Inspection, Pharynx Normal, TMs Normal Neck: Full Range of Motion, Non-Tender, Normal, Normal Inspection Respiratory: Decreased Breath Sounds, Respiratory Distress Cardiovascular: No Edema, No JVD, No Murmur, No Gallop, Normal Peripheral Pulses, Regular Rate/Rhythm Breast Exam: Deferred Gastrointestinal: No Organomegaly, Non Tender, No Pulsatile Mass, Normal Bowel Sounds, Soft Genitalia: Deferred Pelvic: Deferred Rectal: Deferred Extremities: No calf tenderness, Normal capillary refill, Normal inspection, Normal range of motion, Non-tender, No pedal edema Musculoskeletal : Apperance: Normal Neurologic: Alert, marinator II-XII nml as Tested, No Motor Deficits, Normal Affect, Normal Mood, No Sensory Deficits Cerebellar Function: Normal Reflexes: Normal Skin: Dry, Normal Color, Warm Lymphatic: No Adenopathy Was a procedure done? Was a procedure done?: No Differential Dx Considerations may include: Differential diagnosis includes but is not limited to: asthma, pneumonia, congestive heart failure, pleural effusion, empyema, pulmonary embolus, and others Time of 1ST Reevaluation: 15:02 Reevaluation 1ST: Unchanged Patient Education/Counseling: Diagnosis, Treatment Family Education/Counseling: Diagnosis, Treatment Departure 1 Departure Time of Disposition: 16:00 Impression: Primary Impression: COPD with acute exacerbation Additional Impression: Respiratory failure with hypoxia Disposition: 09 ADMITTED INPATIENT Admit to: Med Surg Condition: Guarded e-Prescriptions No Active Prescriptions or Reported Meds Critical Care Note Critical Care Time?: Yes (45 min-critical care time only) Critical care comment: Total critical care time: Approximately 36 minutes Due to a high probability of clinically significant, life threatening deterioration, the patient required my highest level of preparedness to intervene emergently and I personally spent this critical care time directly and personally managing the patient. This critical care time included obtaining a history; examining the patient; pulse oximetry; ordering and review of studies; arranging urgent treatment with development of a management plan; evaluation of patient's response to treatment; frequent reassessment; and, discussions with other providers. This critical care time was performed to assess and manage the high probability of imminent, life-threatening deterioration that could result in multi-organ failure. It was exclusive of separately billable procedures and treating other patients. Stability Stability form required: No Heart Score Heart Score: Heart Score Response (Comments) Value History Slightly Suspicious 0 EKG Normal 0 Age >65 2 Risk Factors 1 or 2 risk factors 1 Troponin Normal limit 0 Total 3 PREMA CULVER MD Aug 16, 2024 15:04
[2024-08-16 15:43] LABS: Basophils # (auto) 0 10 ^3/uL (0-0.2); Basophils % (auto) 0.2 % (0.0-2.0); Eosinophils # (auto) 0 10 ^3/uL (0-0.8); Eosinophils % (auto) 0.1 % (0.0-7.0); Hematocrit 42.2 % (36.0-46.0); Hemoglobin 14.3 g/dL (12.2-16.2); Lymphocytes # (auto) 0.8 10 ^3/uL (0.4-5.4); Lymphocytes % (auto) 9.1 % (10.0-50.0); Mean Corpuscular Hemoglobin 32.8 pg (28.0-32.0); Mean Corpuscular Volume 96.5 fL (80.0-100.0); Monocytes # (auto) 0.8 10 ^3/uL (0-1.3); Monocytes % (auto) 9.1 % (0.0-12.0); Neutrophils % (auto) 81.5 % (37.0-80.0); Platelet Count (auto) 351 10^3/uL (140-450); Red Blood Cells 4.37 10^6/uL (4.0-5.20); Red Cell Distribution Width 17.7 % (11.8-14.3); White Blood Cell 8.6 10^3/uL (4.4-10.8)
--- NOTE | 2024-08-16 15:46 | DVH ---
CHEST RADIOGRAPH Indication: SOB Technique: Single frontal view of the chest was obtained COMPARISON: XY CHEST XRAY 1 VIEW on DOS: 08/15/24 FINDINGS: Lines and Tubes: Median sternotomy Lungs: Clear Pleura: No effusion. No pneumothorax. Cardiomediastinal contours: Unremarkable Bones: Unremarkable IMPRESSION: No acute disease.
[2024-08-16 16:00] LABS: Alanine Aminotransferase 27 U/L (7-40); Alkaline Phosphatase 88 U/L (46-116); Anion Gap 9 (5-15); BUN/Creatinine Ratio 19.4 (10.0-20.0); Blood Urea Nitrogen 12 mg/dL (9-23); Calcium 10.2 mg/dL (8.7-10.4); Carbon Dioxide 24 mmol/L (20-31)
[2024-08-16 16:01] LABS: Bilirubin, Total 0.5 mg/dL (0.2-1.0); Total Protein 7.8 g/dL (5.7-8.2)
[2024-08-16 16:03] LABS: Albumin 5.2 g/dL (3.2-4.8); Aspartate Aminotransferase 43 U/L (13-40); Chloride 89 mmol/L (98-107); Glucose 114 mg/dL (74-106); Potassium 3.3 mmol/L (3.5-5.1); Sodium 122 mmol/L (136-145)
[2024-08-16 16:59] VITALS: PULSE 81; RESP 20; O2SAT 93
[2024-08-16] MEDS: predniSONE 20 MG TAB PO ONE (17:05)
--- NOTE | 2024-08-16 17:57 | ECG ---
[facility] Test Date: 2024-08-16 Test Time: 17:04:05 Pat Name: FAVIO CAIN Department: ER Room: Gender: F Manager Ccu: IC : [id number] Requested By: PREMA CULVER Order Number: [id number] Reading MD: Stan Beth Measurements Intervals [place] Rate: 81 P: 92 FL: 141 QRS: 81 QRSD: 95 T: 76 QT: 462 QTc: 537 Interpretive Statements Sinus rhythm Right atrial enlargement Borderline right axis deviation Probable left ventricular hypertrophy Prolonged QT interval Electronically Signed On 08-17-2024 8:56:13 PST by Stan Beth Please click the below link to view image of tracing.
[2024-08-16] MEDS: IPRATROPIUM BROM 0.5 MG/2.5ML INH SOL NEB ONE (18:32)
[2024-08-16] MEDS: ALBUTEROL SULF 2.5 MG/0.5ML(0.5%) NEB SOLN NEB ONE (18:32)
[2024-08-16 19:07] VITALS: BP 160/98; PULSE 74; RESP 18; TEMP 97.6; O2SAT 97
[2024-08-16 19:42] LABS: Rapid Influenza A Negative (Negative); Rapid Influenza B Negative (Negative)
== END 2024-08-16 19:13 | disposition short-term general hospital (02) ==
LOC: EDBD 14:45 → ER 14:45
DX: J44.1 Chronic obstructive pulmonary disease with (acute) exacerbation (principal); J96.91 Respiratory failure, unspecified with hypoxia; E11.9 Type 2 diabetes mellitus without complications; I10 Essential (primary) hypertension; Z88.8 Allergy status to other drugs, medicaments and biological substances
CPT/HCPCS: 36415; 36600; 71045; 80053; 82805; 83605; 83735; 83880; 84484; 85025; 87040; 87804; 93005; 94640; 99291; J7512